=== PATIENT | male | born 1970 | race Hispanic/Latino ===

== ENCOUNTER 2017-11-10 19:22 | Observation (INO) | payer SELFPAY ==
--- NOTE | 2017-11-10 20:11 | CT ---
CT OF BRAIN WITHOUT CONTRAST: 11/10/17 INDICATION Alcohol use and fall from standing with laceration to back of head. FINDINGS: There is a right parietal scalp contusion. No definite acute infarct, hemorrhage or hydrocephalus is evident. There is moderate mucosal thickening within the ethmoid air cells and visualized maxillary s inuses. Skull is intact. IMPRESSION: 1. No acute intracranial abnormality. 2. Right parietal scalp contusion. POS: [facility]
--- NOTE | 2017-11-10 20:13 | CT ---
CT CERVICAL SPINE WITHOUT CONTRAST: 11/10/17 INDICATION: Fall from standing with neck pain. FINDINGS: There is mild multilevel disc degenerative disease. No acute fracture or subluxation is evident. Osse ous central canal is preserved. Craniocervical junction appears normal. Lung apices are clear. IMPRESSION: No acute fracture or subluxation. POS: [facility]
[2017-11-10 20:45] LABS: #Basophils 0.1 thou/uL (0.0-0.2); #Eosinphils 0.1 thou/uL (0.0-0.7); #Lymphocytes 1.4 thou/uL (1.20-3.40); #Monocytes 0.3 thou/uL (0.11-0.59); #Neutrophils 1.8 thou/uL (1.40-6.50); %Basophils 1.5 % (0.0-1.0); %Eosinophils 1.9 % (0.0-10.0); %Lymphocytes 38.6 % (21.0-51.0); %Monocytes 7.5 % (0.0-10.0); %Neutrophils 50.5 % (42.0-75.0); Hemoglobin 14.1 g/dL (14.0-18.0); Mean Corpuscular HGB CONC 36.9 g/dL (32.0-36.0); Mean Corpuscular Hemoglobin 34.4 pg (27.0-31.0); Mean Corpuscular Volume 93.2 fl (80.0-94.0); Mean Platelet Volume 8.2 fL (7.4-10.4); Platelet Count 176 thou/uL (130-400); RBC Distribution Width 11.8 % (11.5-14.5); White Blood Cell (WBC) Count 3.6 thou/uL (4.8-10.8)
[2017-11-10 20:58] LABS: ALT (SGPT) 16 U/L (8-55); AST (SGOT) 20 U/L (5-34); Albumin 3.7 g/dL (3.5-5.0); Alkaline Phosphatase 100 U/L (40-150); Anion Gap 17 mmol/L (10-20); BUN (Urea Nitrogen) 18 mg/dL (8.9-20.6); Bilirubin, Total 0.3 mg/dL (0.2-1.2); Calc. Creatinine Clearance 0 mL/min (70-130); Calcium 8.4 mg/dL (7.8-10.44); Carbon Dioxide 19 mmol/L (22-29); Chloride 105 mmol/L (98-107); Estimated GFR-MDRD 83; Globulin 3.7 g/dL (2.4-3.5); Glucose 183 mg/dL (70-105); Potassium 3.6 mmol/L (3.5-5.1); Protein, Total 7.4 g/dL (6.0-8.3); Sodium 137 mmol/L (136-145)
[2017-11-10 21:04] LABS: CKMB 0.9 ng/mL (0-6.6); Troponin I Less than 0.010 ng/mL (< 0.028)
[2017-11-10] MEDS ORDERED: Adacel (T-DAP) 0.5 ML VIAL ONE ×2 (22:50→22:58)
[2017-11-11] MEDS ORDERED: Dextrose 50% Abboject 50 ML SYRINGE SLOW IVP PRN (00:19)
[2017-11-11] MEDS ORDERED: Dextrose 5% in Water 1,000 ML IV PRN (00:19)
[2017-11-11] MEDS ORDERED: Ondansetron ODT 4 MG TAB PO PRN (00:19)
[2017-11-11] MEDS ORDERED: Ondansetron HCl/PF 4 MG/2 ML Vial IVP PRN (00:19)
[2017-11-11] MEDS ORDERED: HumaLOG 300 UNITS/3 ML VIAL SC PRN (00:19)
[2017-11-11 00:52] LABS: Hemoglobin A1c 7.3 % (4.0-6.0)
--- NOTE | 2017-11-11 01:03 | PDOC.FPRHP ---
- History of Present Illness Chief Complaint: Syncope History of Present Illness: 46 year old male with insignificant PMH that presents after a syncopal episode. He had gotten up from bed to go smoke a cigarette right before the episode occurred. He was talking with his neighbors outside when he suddenly collapsed and hit his head on the ground. The neighbors knocked on the door to alert his who states that he had only left the bed a few minutes prior to the event. She states that his eyes were open and he was able to communicate the whole time , but he did not appear to be completely alert. Patient states he does not recall any of the events after the fall up until him arriving at the ED. He has otherwise felt fine. He denies any chest pain, shortness of breath, cough, congestion, or fever. He has not been ill recently and does not have any diagnosed medical conditions. Patient denies any prodromal events to include light headedness, dizziness, vertigo, or blurry vision. He has never passed out before. Patient does endorse drinking 4 beers today which is not outside of his normal habits. He also smokes 5-6 cigarettes per day. ED Course: A CT of head and neck were obtained which did not show any acute findings. Pt given Adacel in ED. Two hayden to head laceration for hemostasis. - Allergies/Adverse Reactions Allergies Allergy/AdvReac Type Severity Reaction Status Date / Time No Known Drug Allergies Allergy Verified 11/11/17 01:49 - Home Medications Medication Instructions Recorded Confirmed Type No Known [No Known] 11/11/17 11/11/17 History - History PMHx: Denies any PMH PSHx: None FHx: Mother with HTN and DM type II Social: Endorses smoking 5-6 cigarettes per day for many years. He also endorses drinking approximately 2-6 beers a night, although he does state there are many nights he does not drink at all. He denies any illicit drug use. - Review of Systems General: denies: fever/chills, weight/appetite/sleep changes, fatigue Eyes: denies: eye pain, vision changes ENT: denies: nasal congestion, rhinorrhea Respiratory: reports: cough (at baseline from smoking). denies: congestion, shortness of breath, exercise intolerance Cardiovascular: denies: chest pain, palpitation, edema, paroxysmal nocturnal dyspnea, orthopnea Gastrointestinal: denies: nausea, vomiting, diarrhea, constipation, abdominal pain Genitourinary: denies: incontinence, polyuria Skin: denies: rashes, lesions, jaundice Musculoskeletal: reports: pain (R wrist). denies: tenderness, swelling Neurological: reports: syncope. denies: numbness, seizure, weakness Psychological: denies: anxiety, depression - Vital signs BP: [134/76] HR: [86] RR: [18] Tmax: [98.8] Pox: [95]% on [RA] Wt: [77.56 kg] - Physical Exam Constitutional: NAD, awake, alert and oriented, well developed HEENT: PERRLA, EOMI, conjunctiva clear, no scleral icterus -HEENT: scalp swelling and 1 cm laceration in R parietal region with ongoing oozing Neck: supple Heart: RRR, normal S1/S2, no murmurs/rubs/gallops, pulses present, no edema Lungs: CTAB, no respiratory distress, good air movement, no wheezing Abdomen: soft, non-tender, bowel sounds present, no masses/distention Musculoskeletal: normal structure, normal tone, ROM grossly normal -Musculoskeletal: mild TTP proximal to R wrist, no edema or deformity, ROM full, distal pulses intact Neurological: no focal deficit, CN II-XII intact, normal sensation -Neurological: cerebellar exam WNL Skin: no rash/lesions, good turgor, capillary refill <2 seconds Heme/Lymphatic: no purpura, no petechia -Heme/Lymphatic: scalp bleeding Psychiatric: normal mood and affect, good judgment and insight, intact recent and remote memory FMR H&P: Results - Labs Result Diagrams: 11/10/17 20:28 11/10/17 20:28 Lab results: WBC 3.6 thou/uL (4.8-10.8) L 11/10/17 20: Hgb 14.1 g/dL (14.0-18.0) 11/10/17 20: Hct 38.2 % (42.0-52.0) L 11/10/17 20: MCV 93.2 fl (80.0-94.0) 11/10/17 20: Plt Count 176 thou/uL (130-400) 11/10/17 20: Neutrophils % 50.5 % (42.0-75.0) 11/10/17 20:28 Sodium 137 mmol/L (136-145) 11/10/17 20:28 Potassium 3.6 mmol/L (3.5-5.1) 11/10/17 20:28 Chloride 105 mmol/L (98-107) 11/10/17 20:28 Carbon Dioxide 19 mmol/L (22-29) L 11/10/17 20:28 BUN 18 mg/dL (8.9-20.6) 11/10/17 20:28 Creatinine 0.97 mg/dL (0.6-1.3) 11/10/17 20:28 Glucose 183 mg/dL (70-105) H 11/10/17 20:28 Calcium 8.4 mg/dL (7.8-10.44) 11/10/17 20:28 Total Bilirubin 0.3 mg/dL (0.2-1.2) 11/10/17 20:28 AST 20 U/L (5-34) 11/10/17 20:28 ALT 16 U/L (8-55) 11/10/17 20:28 Alkaline Phosphatase 100 U/L (40-150) 11/10/17 20:28 CK-MB (CK-2) 0.9 ng/mL (0-6.6) 11/10/17 20:28 Serum Total Protein 7.4 g/dL (6.0-8.3) 11/10/17 20:28 Albumin 3.7 g/dL (3.5-5.0) 11/10/17 20:28 - EKG Interpretation EKG: NSR. No ischemic changes. - Radiology Interpretation CT scan - head Status: image reviewed by me, report reviewed by me Additional comment: No acute intracranial findings Other Status: image reviewed by me, report reviewed by me Additional comment: CT neck: No evidence of fracture or subluxation FMR H&P: A/P - Problem List (1) Syncope and collapse Current Visit: Yes Status: Acute Code(s): R55 - SYNCOPE AND COLLAPSE (2) Hyperglycemia Current Visit: Yes Status: Acute Code(s): R73.9 - HYPERGLYCEMIA, UNSPECIFIED - Plan Syncopal episode - Likely orthostatic - No prodromal symptoms, no history of syncopal events - TSH pending - Patient to be admitted to telemetry for observation - Monitor telemetry strip overnight for irregular rhythms that may have contributed to syncopal event - Orthostatic vital signs pending - Fall precautions - Troponin neg x1; no CP or shortness of breath, will not continue to trend troponin - Plasma alcohol of 42 which may have contributed to imbalance and subsequent fall Hyperglycemia - Pt denies any diabetes hx and is not currently taking any medications - HgA1c 7.3 - Will start patient on metformin - Will hold off on ACHS accuchecks as it will not foreign exchange clerk for patient - Encourage patient establish with PCP - FLP pending Dispo: Admit to telemetry for observation. Anticipate stay of <48 hours. FMR H&P: Upper Level - Pertinent history 46 yo M who presents after syncopal episode. He was sleeping and woke up to go outside and smoke a cigarette. He was talking to his neighbors when they said he just "slumped over." He did not lose consciousness and would look at them but per his , "wasn't there." He recalls walking outside and the next thing he remembers was waking up in the ambulance. - Pertinent findings VSS. Physical exam repeated by me and agree with documentation by Dr. Pantoja A/P: 46 yo M with no significant PMHx who presents s/p syncopal episode 1. Syncope: DDX includes neurally-mediated, orthostatic, arrythmia, or structural cardiac disease. No history of this in the past so neurally-mediated less likely. Will check orthostatics on the floor and monitor on telemetry. Will check FLP, a1c, and TSH for risk stratification. 2. Hyperglycemia: Will check a1c. Strong family history. 3. Scalp laceration: 2 hayden placed with non-adhesive dressing in the ER. Will monitor for further bleeding. 4. R wrist pain: Fell on R side. No bruising or deformity and minimal TTP. Consider xray if symptoms persist. - Plan Date/Time: 11/11/17102 I, Allyn Friedman MD, PGY-2, have evaluated this patient and agree with findings/ plan as outlined by technology risk intern resident. Pertinent changes/additions are listed here.
[2017-11-11 02:07] VITALS: BMI 23.0
[2017-11-11 03:40] LABS: Amphetamine Not Detected (NotDetected); Barbiturates Screen Not Detected (NotDetected); Benzodiazepine Screen Not Detected (NotDetected); Cocaine Metabolite Screen Not Detected (NotDetected); Medtox Control Line Valid? VALID (VALID); Medtox Reader # READER 4; Methadone Not Detected (NotDetected); Methamphetamine Not Detected (NotDetected); Opiate Screen Not Detected (NotDetected); Oxycodone Screen Not Detected (NotDetected); Phencyclidine (PCP) Not Detected (NotDetected); THC/Cannabinoid Screen Not Detected (NotDetected); Tricyclic Screen Not Detected (NotDetected)
[2017-11-11 06:11] LABS: Cardiac Risk 7.1 (Less than 4.5); Cholesterol 261 mg/dl (< 200 Desired); HDL Cholesterol 37 mg/dL (>60 Neg Risk); Triglycerides 735 mg/dL (Less than 150)
--- NOTE | 2017-11-11 07:21 | PDOC.FM ---
- Subjective Subjective: Patient feels well. No other acute events. He states he is ready to go home. No other complaints. - Objective Vital Signs & Weight: Vital Signs (12 hours) Temp Pulse Resp BP BP BP BP 11/11/17 03:56 98.2 F 75 16 129/80 129/80 11/11/17 00:19 11/11/17 00:04 98.6 F 81 16 139/82 141/86 H 142/86 H BP Pulse Ox 11/11/17 03:56 95 11/11/17 00:19 97 11/11/17 00:04 139/82 97 Weight Weight 66.587 kg I&O: 11/10/17 11/11/17 11/12/17 06:59 06:59 06:59 Intake Total 320 Output Total 650 Balance -330 Result Diagrams: 11/10/17 20:28 11/10/17 20:28 <Ian Howell - Last Filed: 11/11/17 07:22> - Objective Vital Signs & Weight: Vital Signs (12 hours) Temp Pulse Resp BP BP BP BP 11/11/17 07:55 98.1 F 72 18 126/76 11/11/17 07:35 98.1 F 72 18 131/79 123/76 11/11/17 03:56 98.2 F 75 16 129/80 129/80 11/11/17 00:19 11/11/17 00:04 98.6 F 81 16 139/82 141/86 H 142/86 H BP Pulse Ox 11/11/17 07:55 11/11/17 07:35 126/76 96 11/11/17 03:56 95 11/11/17 00:19 97 11/11/17 00:04 139/82 97 Weight Weight 66.587 kg I&O: 11/10/17 11/11/17 11/12/17 06:59 06:59 06:59 Intake Total 320 240 Output Total 650 650 Balance -330 -410 Result Diagrams: 11/10/17 20:28 11/10/17 20:28 <Rogerio Bunn - Last Filed: 11/11/17 10:31> Phys Exam - Physical Examination Constitutional: NAD HEENT: moist MMs Neck: no nodes Respiratory: no wheezing, clear to auscultation bilateral Cardiovascular: RRR, no significant murmur Gastrointestinal: soft, non-tender, no distention, positive bowel sounds Musculoskeletal: no edema, pulses present Neurological: non-focal, normal sensation, moves all 4 limbs Lymphatic: no nodes Psychiatric: normal affect, A&O x 3 Skin: no rash <Ian Howell - Last Filed: 11/11/17 07:22> Dx/Plan (1) DM2 (diabetes mellitus, type 2) Status: Acute (2) Syncope and collapse Code(s): R55 - SYNCOPE AND COLLAPSE Status: Acute (3) Hypertriglyceridemia Code(s): E78.1 - PURE HYPERGLYCERIDEMIA Status: Acute (4) HLD (hyperlipidemia) Code(s): E78.5 - HYPERLIPIDEMIA, UNSPECIFIED Status: Acute - Plan Plan: Syncopal episode - Likely orthostatic - No prodromal symptoms, no history of syncopal events - Patient to be admitted to telemetry for observation - Monitor telemetry strip overnight for irregular rhythms that may have contributed to syncopal event - Fall precautions - No further events DM2 - Pt denies any diabetes hx and is not currently taking any medications - HgA1c 7.3 - Will start patient on metformin - Encourage patient establish with PCP - FLP pending Hypertriglyceridemia - Initiate Fibrate medication - Needs to establish with PCP for follow up HLD - Initiate Statin medication Dispo: Stable, Patient likely stable for discharge <Ian Howell - Last Filed: 11/11/17 07:22> Attending Addendum - Attending Addendum Date/Time: 11/11/17 1029 I personally evaluated the patient and discussed the management with Dr. Howell. I agree with the History, Examination, Assessment and Plan documented above with any addition or exceptions noted below. Patient doing well this morning and feels ready to go home. He was admitted overnight after possible syncopal episode though it does not sound like he ever lost consciousness. His orthostatic vitals are normal, and he has had no aberrancy on telemetry overnight. His has new diagnosis during hospitalization of DM and HLD. He will be started on medications for those conditions and discharged home later today with instructions on how to establish with [facility]. <Rogerio Bunn - Last Filed: 11/11/17 10:31>
[2017-11-11] MEDS ORDERED: metFORMIN 500 MG TAB PO SCH (08:00)
[2017-11-11 11:00] VITALS: BP 127/73; TEMP 98.5
--- NOTE | 2017-11-12 01:47 | DIS-2 ---
DATE OF ADMISSION: 11/10/2017 DATE OF DISCHARGE: 11/11/2017 RESIDENT: Dr. Howell. ADMITTING ATTENDING: Dr. Bunn. DISCHARGE ATTENDING: Dr. Bunn. CONSULTATIONS: None. PROCEDURES: The patient underwent a brain CT on 11/10/2017 that showed no acute intracranial abnormality, right parietal scalp contusion. The patient underwent a cervical spine CT on 11/10/2017 that showed no acute fracture or subluxation. PRIMARY DIAGNOSES: 1. Syncope and collapse. 2. Diabetes mellitus type 2. 3. Hypertriglyceridemia. 4. Hyperlipidemia. DISCHARGE MEDICATIONS: 1. Atorvastatin 40 mg daily. 2. Fenofibrate 120 mg p.o. daily. 3. Metformin 500 mg p.o. b.i.d. with meals. DISCONTINUED MEDICATIONS: None. HISTORY OF PRESENT ILLNESS AND HOSPITAL COURSE: This is a 46-year-old male with no significant past medical history who presents after a syncopal episode. He had gotten up from bed to go smoke cigarette right after the episode occurred. He was talking with his neighbors outside when he suddenly collapsed and he hit his head on the ground. The neighbor knocked down the door and alert his who states he had only left the bed a few minutes prior to the event. He states his eyes were open and he was able to communicate the whole time, but he did not appear to be completely alert. The patient states he did not recall any of the events after the fall up until arriving at the ED, he was otherwise felt fine. He denies any chest pain, shortness of breath, cough, congestion, or fever. He has not been ill recently and does not have any diagnosed medical conditions. The patient denies any prodromal events to include lightheadedness, dizziness, vertigo or blurry vision. He has never passed out before. The patient does endorse drinking 4 beers today which is not outside of his normal habits. He also smokes 5-6 cigarettes per day. In the ER, a CT head and neck were obtained this did not show any acute findings. The patient was given Adacel in the ED, two hayden to the head laceration for hemostasis as well. During this hospitalization, the patient stated that he felt fine during the whole hospitalization, he has no further complaints and no further significant feelings of lightheadedness. The patient had notable lab values of a triglyceride level of 735, cholesterol level of 261 and a hemoglobin A1c of 7.3. The patient has not seen a doctor regularly his entire life and so he was undiagnosed with hypercholesterolemia, no hypertension. He was undiagnosed for diabetes and undiagnosed for hypertriglyceridemia. It was discovered that the patient is uninsured at this time and so a coverage and a PCP follow up will be a barrier for him other than the [facility]. We do believe that the patient is not having a cardiac etiology of his syncope and collapse at this time because the tele monitor did not medicinal plant picker any arrhythmias during the time he was monitored. He was in normal sinus rhythm in the 60s and 70s as high as 82 for a heart rate. His blood pressure was normotensive and he was afebrile during the hospitalization. We otherwise opted to not do any further workup for his syncopal episode, as it was likely either due to his alcohol drinking or possibly some sleepwalking episodes that he has had in the past. Otherwise, the patient tolerated the hospitalization well and had no further complications during this hospitalization. He was discharged on appropriate condition. DISPOSITION: Stable. DISCHARGE INSTRUCTIONS: 1. Location to be discharged home in the care of himself and his . 2. Diet will be a diabetic diet. 3. Activity will be as tolerated with no restrictions. 4. Follow up will be with the [facility] in 1 week to get the hayden out of his head as well as to coordinate care for his newly found chronic illnesses. JARRELL
--- NOTE | 2017-11-17 14:35 | EKG ---
Test Reason : Blood Pressure : / mmHG Vent. Rate : 088 BPM Atrial Rate : 088 BPM P-R Int : 136 ms QRS Dur : 074 ms QT Int : 364 ms P-R-T Axes : 057 018 045 degrees QTc Int : 440 ms Normal sinus rhythm Normal ECG Confirmed by KIRAN SPENCE M.D. ([id number]), web editor MARIA D ROGERS ([id number]) on 11/17/2017 2:35:43 PM Referred By: Confirmed By:KIRAN SPENCE M.D.
== END 2017-11-11 11:38 | disposition home or self-care (01) ==
LOC: ERS 19:22 → 2SW 21:58
PROVIDERS: ADMIT Student in an Organized Health Care Education/Training Program; ATTEND Student in an Organized Health Care Education/Training Program
DX: R55 Syncope and collapse (principal); E11.9 Type 2 diabetes mellitus without complications; E78.1 Pure hyperglyceridemia; E78.5 Hyperlipidemia, unspecified; Z79.82 Long term (current) use of aspirin; Z79.899 Other long term (current) drug therapy
CPT/HCPCS: 12001; 36415; 36416; 70450; 72125; 80053; 80061; 80306; 80307; 82553; 83036; 84443; 84484; 85025; 90471; 90715; 90732; 93005; G0009; G0378

== ENCOUNTER 2023-04-19 08:10 | Outpatient (CLI) | payer OTHER | END 2023-04-19 08:11 | disposition home or self-care (01) | LOC: BICRAD 08:10 | PROVIDERS: ATTEND Family Medicine | DX: Z22.7 Latent tuberculosis (principal) | CPT/HCPCS: 71046 ==